=== PATIENT | male | born 1990 | race African-American/Black ===

== ENCOUNTER → 2022-06-30 11:17 | Outpatient (BNVA) | payer OTHER, SELFPAY | PROVIDERS: PCP Family Medicine; Visit Provider Physician Assistant Surgical ==

== ENCOUNTER → 2022-07-05 07:59 | Outpatient (BNVA) | payer OTHER, SELFPAY | PROVIDERS: PCP Family Medicine; Visit Provider Surgery ==

== ENCOUNTER 2022-07-11 11:09 | Outpatient (REF) | payer OTHER, SELFPAY ==
--- NOTE | ~2022-07-11 | XR_ITS ---
EXAMINATION: XR CHEST CLINICAL INFORMATION: Bariatric service evaluation. E66.01. COMPARISON: None available. TECHNIQUE: 2 views of the chest were obtained. FINDINGS: The lungs are clear. The vascularity is normal. Heart size normal. Costophrenic sulci are clear. The hilar and mediastinal contours and bony structures are unremarkable. XR/XR chest 2V IMPRESSION: Unremarkable examination.
--- NOTE | 2022-07-11 11:20 | ECG_ITS ---
Test Reason : MORBID OBESITY Blood Pressure : / mmHG Vent. Rate : 078 BPM Atrial Rate : 078 BPM P-R Int : 166 ms QRS Dur : 098 ms QT Int : 380 ms P-R-T Axes : 044 068 095 degrees QTc Int : 433 ms Normal sinus rhythm Nonspecific T wave abnormality Abnormal ECG No previous ECGs available Referred By: Travis Teague Electronically Signed By:Reinaldo Stoddard
[2022-07-11 11:34] LABS: MANUAL DIFF FLAG NO
[2022-07-11 12:21] LABS: Basophils Percent Auto 0.4 % (0-2); Eosinophils Absolute Auto 0.6 X10*3/uL (0.0-0.4); Eosinophils Percent Auto 7.3 % (0-4); Hemoglobin 13.1 g/dl (14.0-18.0); Imm Gran Abs Auto 0.01 X10*3/uL (0.00-0.03); Imm Gran Pct Auto 0.1 % (0.0-0.4); Lymphocytes Absolute Auto 2.4 X10*3/uL (1.2-4.9); Lymphocytes Percent Auto 29.8 % (20-40); Mean Corpuscular HGB Conc 33.6 g/dl (31.0-36.0); Mean Corpuscular Volume 83.3 fL (80.0-98.0); Mean Platelet Volume 10.3 fL (9.4-12.4); Monocytes Absolute Auto 0.8 X10*3/uL (0.1-1.2); Monocytes Percent Auto 9.8 % (2-11); Neutrophils Absolute Auto 4.2 x10*3/uL (2.0-8.3); Neutrophils Percent Auto 52.6 % (45-73); Platelet Count 307 X10*3/uL (160-400); Red Blood Count 4.68 X10*6/uL (4.60-5.80); Red Cell Distribution Width 13.6 % (11.0-16.0)
[2022-07-11 12:41] LABS: Estimated Average Glucose 108 mg/dL; Hemoglobin A1c % 5.4 %
[2022-07-11 13:17] LABS: Alanine Aminotransferase 25 U/L (0-40); Albumin Level 4.1 g/dL (3.5-5.0); Alkaline Phosphatase 57 U/L (39-117); Anion Gap 11 (12-20); Aspartate Amino Transferase 21 U/L (5-37); Bilirubin Total 0.9 mg/dL (0.0-1.0); Blood Urea Nitrogen 10 mg/dL (9-16); C Reactive Protein < 0.10 mg/dL (< or = 0.50); Calcium 9.5 mg/dL (8.4-10.2); Carbon Dioxide 27 mmol/L (22-29); Chloride 107 mmol/L (96-108); Cholesterol 127 mg/dL; Estimated Glomerular Filt Rate > 60; Glucose Random 94 mg/dL (60-115); HDL Cholesterol 40 mg/dL; Iron 106 mcg/dL (45-160); LDL Cholesterol Calculated 69 mg/dl; Percent Iron Saturation 40 % (15-50); Potassium 4.2 mmol/L (3.3-5.1); Sodium 141 mmol/L (135-145); Total Iron Binding Capacity 265 mcg/dL (228-428); Total Protein 7.1 g/dL (6.5-8.0); Triglycerides 94 mg/dL; Unsaturated Iron Binding 159 ug/dL
[2022-07-11 13:32] LABS: Ferritin 147 ng/mL (20-250); Folate 8.1 ng/mL (> or = 4.0); Insulin 25 uU/mL (2-29); TSH reflex Free T4 0.55 uIU/mL (0.32-4.0); Vitamin B12 564 pg/mL (200-900); Vitamin D 25-OH Total 19.5 ng/mL (>30)
[2022-07-12 13:14] LABS: Calcium (PTHI) 9.2 mg/dL (8.6-10.3); PTHI 48 pg/mL (16-77)
[2022-07-13 14:54] LABS: H Pylori Breath Test Negative (Negative)
[2022-07-16 12:43] LABS: Vitamin B1 8 nmol/L (8-30)
[2022-07-16 16:04] LABS: Zinc 67 mcg/dL (60-130)
[2022-07-19 00:33] LABS: Vitamin A 44 mcg/dL (38-98)
== END 2022-07-11 11:10 | disposition home or self-care (01) ==
LOC: HO.LAB 11:09
PROVIDERS: Absent Provider Surgery; PCP Family Medicine; Visit Provider Physician Assistant Surgical
DX: E66.01 Morbid (severe) obesity due to excess calories (principal); K21.9 Gastro-esophageal reflux disease without esophagitis; E11.9 Type 2 diabetes mellitus without complications; I10 Essential (primary) hypertension; J45.909 Unspecified asthma, uncomplicated
CPT/HCPCS: 36415; 71046; 80053; 80061; 82306; 82607; 82728; 82746; 83013; 83036; 83525; 83540; 83970; 84425; 84443; 84590; 84630; 85025; 86140; 93005; 99211

== ENCOUNTER → 2022-07-18 10:25 | Outpatient (REF) | payer OTHER, SELFPAY ==
--- NOTE | 2022-07-18 10:28 | CA_ITS ---
Acquisition Time: 2022-07-18 10:25:15 Total Exercise Time: 00:06:49 Test Indications: HTN Medications: SEE H Protocol: ALEXANDER Max HR: 173 BPM 92% of Pred: 188 BPM Max BP: 242/074 mmHG Max Work Load: 8.2 METS Exercise stress test exercise 6 min 49 sec of Alexander protocol achieving 90% MPHR 8.2 METS, with mild SOB, no chest discomfort, without arrhythmia, with normal resting blood pressure with exaggerated response to exercise with max BP 242/74, with baseline EKG showing ST and T wave abnormaility leads 3, aVF, V4-V6 which resolve in normal 12 lead EKG lead placement, ( then returned to a stress valve tester placement for exercise) without significant changes noted during exercise. In recovery BP returned to 134/80. He tells me he did take his Lisinopril this am. Test reviewed with Dr Cerrato Referred By: Travis Teague Overread By: ALIX LAGOS
== END ==
LOC: HO.CARD 10:25
PROVIDERS: PCP Registered Nurse; Visit Provider Surgery
DX: R94.31 Abnormal electrocardiogram [ECG] [EKG] (principal)
CPT/HCPCS: 93017

== ENCOUNTER → 2022-08-02 08:11 | Outpatient (BNVA) | payer OTHER, SELFPAY | PROVIDERS: PCP Registered Nurse; Visit Provider Surgery ==